=== PATIENT | male | born 1995 | race Caucasian/White ===

== ENCOUNTER 2017-10-21 22:08 | Emergency (ER) | payer BC ==
[2017-10-21 22:35] VITALS: BP 130/78
--- NOTE | 2017-10-21 22:46 | EDM.PDOC ---
ED HPI GENERAL MEDICAL PROBLEM - General Chief Complaint: ENT Problem Stated Complaint: poss ear infection sore throat Time Seen by Provider: 10/21/17 22:35 Source of Information: Reports: Patient, RN Notes Reviewed - History of Present Illness INITIAL COMMENTS - FREE TEXT/NARRATIVE: 21-year-old male comes in with severe sore throat. This started about 4 to 5 days ago. Has become much more severe over the past 3 days. Very painful for him to swallow. He now is getting pain radiating toward his right ear as well. He's had some chills but no definite fever. No other unusual symptomatology. Throat Pain Score (Numeric/FACES): 7 - Related Data Allergies Allergy/AdvReac Type Severity Reaction Status Date / Time bee venom protein (honey bee) Allergy Swelling Verified 10/21/17 22:35 Home Meds: Home Meds . [No Known Home Meds] 10/21/17 [History] Past Medical History - Past Health History Medical/Surgical History: Denies Medical/Surgical History - Past Surgical History GI Surgical History: Reports: Appendectomy Social & Family History - Family History Family Medical History: Noncontributory - Tobacco Use Smoking Status *Q: Never Smoker - Recreational Drug Use Recreational Drug Use: No ED ROS ENT - Review of Systems Review Of Systems: See Below Constitutional: Reports: Chills. Denies: Fever HEENT: Reports: Ear Pain, Throat Pain. Denies: Ear Discharge, Rhinitis, Sinus Problem Respiratory: Reports: Cough. Denies: Shortness of Breath (Mild right sided) Cardiovascular: Denies: Chest Pain GI/Abdominal: Denies: Abdominal Pain, Nausea, Vomiting Musculoskeletal: Reports: No Symptoms Skin: Reports: No Symptoms Neurological: Reports: No Symptoms ED EXAM, ENT - Physical Exam Exam: See Below General Appearance: Alert, Mild Distress Eye Exam: Bilateral Eye: PERRL Ears: Normal External Exam, Normal Canal, Normal TMs Nose: Normal Inspection Mouth/Throat: Pharyngeal Erythema (Moderate, no visible exudate) Head: No: Facial Swelling, Facial Tenderness Neck: Supple, Full Range of Motion, Lymphadenopathy (R) (Referring minimal right -sided adenopathy, no other palpable mass at this time, no erythema) Respiratory/Chest: No Respiratory Distress, Lungs Clear Cardiovascular: Regular Rate, Rhythm Extremities: Normal Inspection, Normal Range of Motion Neurological: Alert, Oriented, No Motor/Sensory Deficits Course - Vital Signs Last Recorded V/S: Last Vital Signs Temp 99.6 F 10/21/17 22:31 Pulse 79 10/21/17 22:31 Resp 16 10/21/17 22:31 BP 130/78 10/21/17 22:31 Pulse Ox 99 10/21/17 22:31 Departure - Departure Time of Disposition: 22:44 Disposition: Home, Self-Care 01 Condition: Fair Clinical Impression: Pharyngitis Qualifiers: Pharyngitis/tonsillitis etiology: streptococcus Qualified Code(s): J02.0 - Streptococcal pharyngitis - Discharge Information Instructions: Pharyngitis, [id number] Referrals: PCP,None [Primary Care Provider] - Forms: ED Department Discharge Additional Instructions: Rest, drink plenty of fluids to maintain hydration, Pen-Vee K 500 mg 4 times daily for 1 week or until gone, alternate Tylenol and ibuprofen as needed for discomfort, hydrocodone at night if needed for severe pain, do not take Tylenol and hydrocodone at the same time, do not drive or work when taking hydrocodone.
== END 2017-10-21 23:00 | disposition home or self-care (01) ==
LOC: JD.ED 22:08
DX: J02.0 Streptococcal pharyngitis (principal); Z91.030 Bee allergy status
CPT/HCPCS: 99283